=== PATIENT | male | born 1985 | race Caucasian/White ===

== ENCOUNTER 2017-04-30 17:31 | Emergency (ER) | payer MEDICAID ==
[2017-04-30] MEDS ORDERED: AMMONIA AROMATIC 1 EACH AMP IH ONE (17:36)
[2017-04-30] MEDS ORDERED: NS 1,000 ML IV ONE (17:40)
--- NOTE | 2017-04-30 17:43 | EDPHY ---
H & P Time Seen by Provider: 04/30/17 17:33 HPI/ROS: CHIEF COMPLAINT: Lethargy HISTORY OF PRESENT ILLNESS: The patient is a 31-year-old man who [facility]. Paramedics state that he was given a clonidine patch and soon thereafter became somnolecent. He has not vomited. He has not had a fever. No trauma. No seizure. The patient tells me that he took Ativan and Dilaudid that the arc gave him an hour or 2 ago. He is confused however. He denies being in any pain. REVIEW OF SYSTEMS: Constitutional: denies: chills, fever, recent illness, recent injury EENTM: denies: blurred vision, double vision, nose congestion Respiratory: denies: cough, shortness of breath Cardiac: denies: chest pain, irregular heart rate, lightheadedness, palpitations Gastrointestinal/Abdominal: denies: abdominal pain, diarrhea, nausea, vomiting, blood streaked stools Genitourinary: denies: dysuria, frequency, hematuria, pain Musculoskeletal: denies: joint pain, muscle pain Skin: denies: lesions, rash, jaundice, bruising Neurological: denies: headache, numbness, paresthesia, tingling, dizziness, weakness Hematologic/Lymphatic: denies: blood clots, easy bleeding, easy bruising Immunologic/allergic: denies: HIV/AIDS, transplant EXAM: GENERAL: Well-appearing, well-nourished and in no acute distress. HEAD: Atraumatic, normocephalic. EYES: Pupils equal round and reactive to light, extraocular movements intact, sclera anicteric, conjunctiva are normal. ENT: TMs normal, nares patent, oropharynx clear without exudates. Moist mucous membranes. NECK: Normal range of motion, supple without lymphadenopathy or JVD. LUNGS: Breath sounds clear to auscultation bilaterally and equal. No wheezes rales or rhonchi. HEART: Regular rate and rhythm without murmurs, rubs or gallops. ABDOMEN: Soft, nontender, normoactive bowel sounds. No guarding, no rebound. No masses appreciated. BACK: No CVA tenderness, no spinal tenderness, step-offs or deformities EXTREMITIES: Normal range of motion, no pitting or edema. No clubbing or cyanosis. NEUROLOGICAL: Cranial nerves II through XII grossly intact. Normal speech, normal gait. 5/5 strength, normal movement in all extremities, normal sensation PSYCH: Sleepy but easily arousable, answers most questions appropriately but is confused about his activities over the last day or 2. SKIN: Warm, dry, normal turgor, no visible rashes or lesions. Source: Patient Exam Limitations: No limitations - Medical/Surgical History Hx Asthma: No Hx Chronic Respiratory Disease: No Hx Diabetes: No Hx Cardiac Disease: No Hx Renal Disease: No Hx Cirrhosis: No Other PMH: Opiate abuse - Family History Significant Family History: No pertinent family hx - Social History Alcohol Use: Occasionally Drug Use: Other Constitutional: Initial Vital Signs Temperature (C) 37.1 C 04/30/17 17:47 Heart Rate 82 04/30/17 17:47 Respiratory Rate 18 04/30/17 17:47 Blood Pressure 133/52 H 04/30/17 17:47 O2 Sat (%) 95 04/30/17 17:47 O2 Delivery Mode Room Air Allergies/Adverse Reactions: No Known Allergies Allergy (Unverified 04/30/17 17:49) Home Medications: Medication Instructions Recorded Clorazepate Dipotassium 04/30/17 Phenergan 12.5mg tab 04/30/17 Medical Decision Making ED Course/Re-evaluation: 6:15 p.m. the patient's girlfriend is here. She states that he was not yet admit to the [facility] but that they are trying to go through intake. The [facility] did not give him any treatment. Patient was wearing an unmarked patch. He is now awake and alert and talkative. I will allow them to be discharged and make return to the [facility] if they wish or back home. We were able to get the patient back to the [facility]. Differential Diagnosis: Partial list of the Differential diagnosis considered include but were not limited to; opiate addiction, withdrawal, overdose and although unlikely based on the history and physical exam, I also considered infection, intracranial hemorrhage, seizure. I discussed these differential diagnoses and the plan with the patient as well as the usual and expected course. The patient understands that the diagnosis is provisional and that in medicine we are not always correct and that further workup is often warranted. Usual and customary warnings were given. All of the patient's questions were answered. The patient was instructed to return to the emergency department should the symptoms at all worsen or return, otherwise to followup with the physician as we discussed. - Data Points Medications Given: Discontinued Medications Sodium Chloride (Ns) 1,000 mls @ 0 mls/hr IV ONCE ONE PRN Reason: Wide Open Stop: 04/30/17 17:41 Last Admin: 04/30/17 18:06 Dose: 1,000 mls Departure - Departure Disposition: Home, Routine, Self-Care Clinical Impression: Opiate abuse, continuous Condition: Fair Instructions: Narcotic Abuse (ED) Referrals: Mayo Jurado MD [[facility] Primary Care Provider] - As per Instructions
[2017-04-30 17:49] VITALS: RESP 18
[2017-04-30 19:25] VITALS: BP 105/67; PULSE 94; TEMP 98.1; O2SAT 98
== END 2017-04-30 19:25 | disposition home or self-care (01) ==
DX: F11.10 Opioid abuse, uncomplicated (principal)